=== PATIENT | female | born 1940 | race Caucasian/White ===

== ENCOUNTER 2018-08-01 07:23 | Day surgery (SDC) | payer MEDICARE, OTHER ==
--- NOTE | 2018-07-23 19:11 | HP ---
CC: Dr. English * PREOPERATIVE HISTORY AND PHYSICAL: DATE OF ADMISSION: 08/01/18 This patient is scheduled for same-day surgery admission by Dr. Nolasco on , 08/01/18. DATE OF PREOPERATIVE HISTORY AND PHYSICAL EXAMINATION: 07/23/18. ATTENDING SURGEON: Dr. Haider Nolasco * (dictated by Vikki Hoskins NP). CHIEF COMPLAINT: Right breast cancer. HISTORY OF PRESENT ILLNESS: The patient is an 78-year-old female referred to Dr. Nolasco from Dr. English for evaluation of a mass in the lower medial right breast just above the inframammary fold; Dr. Nolasco excised this area here in the office on 06/14/18 and the pathology revealed an inflamed ruptured epidermal inclusion cyst. He also noticed on physical exam a palpable nodule in the upper outer quadrant of the right breast. The patient underwent ultrasound and mammogram on 07/10/18 and this revealed a solid nodule in the right upper outer quadrant of the breast suspicious for breast cancer. She then underwent fine needle aspiration by Dr. 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 Dr. Nolasco discussed the findings with the patient and her daughter and recommended wide excision of the right breast cancer and sentinel lymph node biopsy as the same-day surgery procedure. He discussed the nature of the surgical procedure, the nature of breast cancer, the relevant risks and benefits , and today I reviewed the expected postoperative care and recovery. The patient and her daughter has had a chance to ask questions and stated that they understand the information and are satisfied with the answers given to their questions. The patient will sign surgical consent on the day of surgery. She has never had radiation to the chest, she had her first menstrual period at age 12, and underwent menopause around age 49. She was age 22 at her first live and she did breast feed. She does not have any family history of breast or ovarian cancer. PAST MEDICAL HISTORY: Significant for osteoarthritis. PAST SURGICAL HISTORY: Excision of a typical lipoma, left calf; excision of right thumb mass; tonsillectomy. MEDICATIONS: 1. Calcium plus vitamin D supplement daily. 2. Multivitamins daily. ALLERGIES: SULFA ANTIBIOTICS caused some type of unspecified reaction in childhood. FAMILY HISTORY: No known breast or ovarian cancer. Father at age 68 with the history of brain tumor. SOCIAL HISTORY: She is a . She lives with her daughter. She has never been a smoker. She drinks a small amount of wine and denies the use of other substances. REVIEW OF SYSTEMS: Constitutional: No fevers, chills, excessive fatigue, or weight loss. Endocrine: No diabetes or thyroid disease. Hematologic: No easy bruising or bleeding. No blood transfusions. Breasts: As described in history of present illness. Respiratory: No dyspnea on exertion. No chronic cough. She can climb 2 flights of stairs without shortness of breath. Cardiovascular: No anginal chest pain. No history of myocardial infarction. No palpitations. Gastrointestinal: No nausea, vomiting, diarrhea, GI bleeding, or constipation. Genitourinary: No dysuria. Musculoskeletal: No back pain. She does have occasional knee pain. She remains very active. Integumentary: No chronic rashes or skin changes. Neurologic: No headache or blurred vision. No areas of focal weakness. General: No history of deep vein thrombosis or pulmonary embolism. No previous anesthesia complications. PHYSICAL EXAMINATION GENERAL SURVEY: The patient is an 78-year-old female, slender, well developed, in no acute distress. VITAL SIGNS: Height 69 inches, weight 118 pounds, body mass index 17.4, blood pressure 90/60, pulse 74 and regular, respiratory rate 16, temperature 98.2 tympanic. HEENT: Benign. NECK: Supple. No cervical lymphadenopathy. No thyromegaly. BREASTS: Right breast with a well-healed surgical scar in the lower medial aspect just above the inframammary fold; there is a palpable mass in the upper outer quadrant of the right breast approximately 1 cm in size. There is no ecchymosis or infection at the previous fine needle aspiration site. There is no palpable axillary lymphadenopathy bilaterally. Left breast without palpable masses. No nipple discharge bilaterally. LUNGS: Breath sounds bilaterally clear and equal. HEART: Regular rate and rhythm. No murmurs or rubs appreciated. ABDOMEN: Active bowel sounds, soft, nondistended, nontender throughout. No obvious masses or organomegaly or evidence of umbilical hernia. EXTREMITIES: Warm without edema or skin ulcerations. PELVIC: Deferred RECTAL: Deferred. NEUROLOGIC: Alert and oriented x3. Steady gait. BACK: No CVA tenderness. SKIN: Warm, dry, intact. IMPRESSION: Right breast cancer. PLAN: Same-day surgery admission to Dr. Nolasco's service on , 08/01/18 , for wide excision of right breast cancer and sentinel lymph node biopsy. JOSÉ LUIS HOSKINS, VENEER GLUE SP[employer]ER [id number]/[facility] #: [id number] SCOTT
[~2018-08-01 07:23] MED LIST: Buffered Lidocaine 0.9% SYRIN* 5 ML/SYR SYRINGE INTRADERM ONE; Famotidine IV* 10 MG/ML 2 ML (20 mg) IV ONE
[2018-08-01] MEDS ORDERED: Buffered Lidocaine 0.9% SYRIN* 5 ML/SYR SYRINGE ONE (07:29)
[2018-08-01] MEDS ORDERED: Lidocaine 2.5%/Prilocain 2.5%* 5 GM TUBE ONE (07:29)
[2018-08-01] MEDS ORDERED: Famotidine IV* 10 MG/ML 2 ML (20 mg) ONE (10:18)
[2018-08-01] MEDS ORDERED: ceFAZolin 2 GM PREMIX in ORs 2 GM/50 ML BAG IVPB ONE (10:24)
--- NOTE | 2018-08-01 10:24 | RAD ---
INDICATION: Right breast carcinoma. Comparison: Comparison is made with prior mammograms and a right breast ultrasound from July 10, 2018. Technique: The benefits and risks of the procedure were explained to the patient. The patient consented to the exam. A timeout was performed before beginning the procedure. 0.32 mCi of technetium 99m filtered sulfur colloid were injected in a larry-areolar location in the right breast. Four intradermal injections were made. The patient tolerated the procedure well without incident. Multiple images of the chest and right axilla were obtained in the frontal, oblique and lateral projections. FINDINGS: There appear to be 2 sentinel nodes immediately adjacent to each other in the right axilla. This area was localized and marked on the patient's skin. IMPRESSION: THERE ARE 2 SENTINEL NODES IN THE RIGHT AXILLARY REGION ADJACENT TO EACH OTHER WHICH WERE MARKED ON THE PATIENT'S SKIN.
[2018-08-01] MEDS ORDERED: Midazolam* 1 MG/ML 5 ML VIAL (5 MG) ONE (10:55)
[2018-08-01] MEDS ORDERED: Bupivacaine 0.25% W/EPI* 10 ML SDV ONE (11:02)
[2018-08-01] MEDS ORDERED: Lidocaine 1% INJ* 10 MG/ML 30 ML SDV ONE (11:03)
[2018-08-01] MEDS ORDERED: fentaNYL* 50 MCG/ML 2 ML VIAL (100 MCG VIAL) ONE (11:05)
[2018-08-01] MEDS ORDERED: Ketorolac INJ* 30 MG/ML 1 ML VIAL ONE (11:13)
[2018-08-01] MEDS ORDERED: Dexamethasone IV* 4 MG/ML 1 ML (4 MG) ONE (11:13)
[2018-08-01] MEDS ORDERED: Ondansetron INJ* 2 MG/ML VIAL ONE (11:13)
[2018-08-01] MEDS ORDERED: Lidocain 1% EPI 1:100,000 * 30 ML MDV ONE (11:26)
[2018-08-01] MEDS ORDERED: Bupivacaine 0.5% SDV PF* 30ML VIAL ONE (11:26)
[2018-08-01] MEDS ORDERED: Lidocaine 2% PF * 5 ML VIAL ONE (11:51)
[2018-08-01] MEDS ORDERED: Propofol* 10 MG/ML 20 ML BTL IV PUSH ONE (11:51)
[2018-08-01] MEDS ORDERED: Naloxone* 0.4 MG/ML 1 ML VIAL IV PRN (11:52)
[2018-08-01] MEDS ORDERED: DiMENhydriNATE IV* 50 MG/ML VIAL IV PUSH PRN (11:52)
[2018-08-01] MEDS ORDERED: Acetaminophen TAB* 325 MG PO PRN (11:52)
[2018-08-01] MEDS ORDERED: HYDROmorphone INJ1* 1 MG/ML SYRINGE IV PRN (11:52)
[2018-08-01 13:15] VITALS: BP 119/61
--- NOTE | 2018-08-02 05:13 | OP ---
CC: Dr. Shalini English; Dr. Rachel Peña * DATE OF OPERATION: 08/01/18 - [facility] DATE OF : 36 SURGEON: Haider Nolasco MD DRESS CUTTER: Vikki Hoskins NP ANESTHESIOLOGIST: Dr. Umanzor. ANESTHESIA: LMAC anesthesia. PRE-OP DIAGNOSIS: Carcinoma of the right breast. POST-OP DIAGNOSIS: Carcinoma of the right breast. OPERATIVE PROCEDURE: Wide local excision and sentinel node biopsy of right breast cancer. DESCRIPTION OF PROCEDURE: The patient was supine on the operating room table. After adequate intravenous sedation, compression stockings, Сергей Hugger warmer, and intravenous antibiotics, the right breast and axillary region were prepped with antiseptic and draped in a sterile fashion. Local infiltrative anesthesia was administered. An approximately 5-cm incision was created in the region of the upper outer quadrant breast mass. Wide excision was carried out from just under the skin down to the pectoralis fascia and this was an excision of approximately 6 x 5 x 3 cm. This was marked with usual localizing sutures and sent fresh to Pathology along with the [place] [facility] study information. The axillary node was accessible via the same incision, so using the Neoprobe , I was able to reach up into the axilla and identified 4 sentinel nodes, 2 of them sounded very hot and counts of over 400, 2 of them were moderate and had counts of approximately 50. The basin count was almost nil thereafter. Hemostasis was obtained using cautery or suture ligature where appropriate and the closure was accomplished using 3-0 and 5-0 Vicryl followed by Steri-Strips. She tolerated the procedure well, was awakened and brought to Recovery in good condition. There were no complications. No drains. Pathologic specimens were the right breast mass excision, 4 sentinel nodes, and little bit of additional axillary tissue. She tolerated the procedure well and was brought to Recovery in good condition. There were no complications. No drains. Estimated blood loss was 30 mL. [id number]/[facility] #: [id number] MTDD
== END 2018-08-01 12:55 | disposition home or self-care (01) ==
LOC: OR 07:23
PROVIDERS: ATTEND Surgery
DX: C50.411 Malignant neoplasm of upper-outer quadrant of right female breast (principal); C77.3 Secondary and unspecified malignant neoplasm of axilla and upper limb lymph nodes; M19.90 Unspecified osteoarthritis, unspecified site
CPT/HCPCS: 78195; 88271; 88304; 88307; 88342; 88360; A9270-GY; A9541; J0690; J1100; J1885; J2250; J2405; J2704; J3010